=== PATIENT | male | born 1945 | race Caucasian/White ===

== ENCOUNTER → 2020-09-13 10:46 | Outpatient (BNVA) | payer MEDICARE, SELFPAY | PROVIDERS: PCP Family Medicine; Visit Provider Nurse Practitioner Family | DX: I10 Essential (primary) hypertension (principal); S60.511A Abrasion of right hand, initial encounter; S60.512A Abrasion of left hand, initial encounter; L25.5 Unspecified contact dermatitis due to plants, except food | CPT/HCPCS: 80053; 80061; 84443; 85025; 87070; 87075; 87205 ==

== ENCOUNTER → 2020-09-15 10:04 | Outpatient (BNVA) | payer MEDICARE, SELFPAY | PROVIDERS: PCP Family Medicine; Visit Provider Nurse Practitioner Family | DX: R73.01 Impaired fasting glucose (principal); R73.09 Other abnormal glucose | CPT/HCPCS: 83036 ==

== ENCOUNTER 2020-10-12 08:04 | Outpatient (CLI) | payer MEDICARE, MEDICAID, SELFPAY | END 2020-10-12 08:05 | disposition home or self-care (01) | PROVIDERS: PCP Family Medicine; Visit Provider Nurse Practitioner Family | DX: L98.491 Non-pressure chronic ulcer of skin of other sites limited to breakdown of skin (principal) | CPT/HCPCS: 11042; G0463 ==

== ENCOUNTER 2022-07-19 09:43 | Outpatient (CLI) | payer MEDICARE, SELFPAY ==
--- NOTE | 2022-07-19 10:15 | USCV_ITS ---
Evert Shau Age: 76 Gender: M : 1945 Exam Date: 07/19/2022 09:57 Ordering Phys: Maynor Christianson M.D ([email or web address]) Technologist: Shahana [place] [facility] [place]: Shortness of Breath BP: 120 / 70 HR: 51 Rhythm: Sinus Technical Quality: Adequate MEASUREMENTS (Male / Female) Normal Values 2D ECHO LV Diastolic Diameter PLAX 3.9 cm 4.2 - 5.9 / 3.9 - 5.3 cm LV Systolic Diameter PLAX 3.2 cm LV Chamber Size 3.9 cm IVS Diastolic Thickness 0.9 cm 0.6 - 1.0 / 0.6 - 0.9 cm IVS Systolic Thickness 1.3 cm LVPW Diastolic Thickness 1.2 cm 0.6 - 1.0 / 0.6 - 0.9 cm LVPW Systolic Thickness 1.4 cm RV Chamber Size 3.5 cm LVOT Diameter 2.1 cm LV Ejection Fraction 2D Teich 39.4 % LV Ejection Fraction MOD 2C 47.4 % LV Ejection Fraction 2C AL 46.7 % LA Diameter 2.6 cm LA Width 2.6 cm LA Height 3.7 cm RA Width 3.5 cm RA Height 4.4 cm Aorta at Sinotubular Diameter 2.5 cm IVC Diameter 1.5 cm M-MODE Aortic Annulus Diameter 2.8 cm LA Ao Ratio MM 1.1 MV E Point Septal Separation 0.5 cm DOPPLER AV Peak Velocity 130.0 cm/s LVOT Peak Velocity 124.0 cm/s AV Area Cont Eq vti 3.1 cm squared AV Area Cont Eq pk 3.3 cm squared MV Area PHT 3.0 cm squared Mitral E to A Ratio 1.3 MV E' Velocity 48.0 cm/s Mitral E to MV E' Ratio 9.8 Mitral E to LV E' Lateral Ratio 8.6 Mitral E to LV E' Septal Ratio 11.4 TR Peak Velocity 216.9 cm/s TR Peak Gradient 18.8 mmHg TR Mean Velocity 154.1 cm/s TR Mean Gradient 11.0 mmHg TR Velocity Time Integral 69.3 cm TV Peak E Velocity 31.0 cm/s Right Atrial Pressure 8.0 mmHg Pulmonary Artery Systolic Pressu 26.8 mmHg RV Acceleration Time 0.2 s RV Ejection Time 0.4 s RV AcT/ET 0.4 FINDINGS Left Ventricle Left ventricle is normal in size. LV systolic function is normal with EF of 55 to 60%. No regional wall motion abnormalities are seen. Diastolic function is normal. Right Ventricle Normal in size and function Right Atrium Normal in size Left Atrium Normal in size Mitral Valve Structurally normal mitral valve. No significant stenosis or regurgitation. Aortic Valve Grossly normal. No significant stenosis or regurgitation. Tricuspid Valve Mild tricuspid regurgitation. Insufficient TR jet to calculate RVSP Pulmonic Valve Not well visualized Pericardium Normal Aorta Normal in size IVC Appears to be normal CONCLUSIONS LV systolic function is normal with EF of 55 to 60%. Diastolic function is normal. Mild tricuspid regurgitation. No comparison studies are available Maynor Christianson MD (Electronically Signed) Final Date: 21 July 2022 13:35 S
== END 2022-07-19 09:44 | disposition home or self-care (01) ==
LOC: RAD 09:45
PROVIDERS: PCP Nurse Practitioner Family; Visit Provider Internal Medicine
DX: R06.02 Shortness of breath (principal); I07.1 Rheumatic tricuspid insufficiency
CPT/HCPCS: 93306

== ENCOUNTER → 2022-10-23 13:33 | Outpatient (BNVA) | payer MEDICARE, SELFPAY | PROVIDERS: PCP Nurse Practitioner Family; Visit Provider Internal Medicine | DX: I25.10 Atherosclerotic heart disease of native coronary artery without angina pectoris (principal); I73.9 Peripheral vascular disease, unspecified; J44.9 Chronic obstructive pulmonary disease, unspecified; Z98.61 Coronary angioplasty status; I10 Essential (primary) hypertension; I25.2 Old myocardial infarction; F17.210 Nicotine dependence, cigarettes, uncomplicated | CPT/HCPCS: 99214 ==

== ENCOUNTER → 2023-04-23 14:47 | Outpatient (BNVA) | payer MEDICARE, SELFPAY | PROVIDERS: PCP Nurse Practitioner Family; Visit Provider Nurse Practitioner Family | DX: I25.10 Atherosclerotic heart disease of native coronary artery without angina pectoris (principal); I73.9 Peripheral vascular disease, unspecified; I10 Essential (primary) hypertension; F17.210 Nicotine dependence, cigarettes, uncomplicated | CPT/HCPCS: 99214 ==

== ENCOUNTER → 2023-10-16 13:49 | Outpatient (BNVA) | payer MEDICARE, SELFPAY | PROVIDERS: PCP Nurse Practitioner Family; Visit Provider Internal Medicine | DX: I25.10 Atherosclerotic heart disease of native coronary artery without angina pectoris (principal); I73.9 Peripheral vascular disease, unspecified; J44.9 Chronic obstructive pulmonary disease, unspecified; Z98.61 Coronary angioplasty status; I10 Essential (primary) hypertension; Z72.0 Tobacco use; I25.2 Old myocardial infarction | CPT/HCPCS: 99214 ==

== ENCOUNTER 2024-01-15 16:03 | Emergency (ER) | payer MEDICARE, SELFPAY ==
[2024-01-15 16:11] VITALS: BP 173/70; PULSE 53; RESP 18; TEMP 36.8; O2SAT 99; BMI 25.8
--- NOTE | 2024-01-15 16:12 | XRR_ITS ---
PROCEDURE INFORMATION: Exam: XR Chest Exam date and time: 01/15/2024 5:04 PM Age: 78 years old Clinical indication: Chest wall pain; Additional info: Cp TECHNIQUE: Imaging protocol: Radiologic exam of the chest. Views: 1 view. COMPARISON: No relevant prior studies available. FINDINGS: Lungs: Unremarkable. No consolidation or mass. Pleural spaces: Unremarkable. No pleural effusion. No pneumothorax. Heart/Mediastinum: Unremarkable. No cardiomegaly. Bones/joints: Unremarkable. XR/XR chest 1V portable [id number] IMPRESSION: No acute findings.
--- NOTE | 2024-01-15 16:12 | ECG_ITS ---
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 Measurements Intervals [place] Rate: 54 P: 51 DE: 145 QRS: 71 QRSD: 89 T: 75 QT: 420 QTc: 399 Interpretive Statements SINUS BRADYCARDIA No previous ECG available for comparison Electronically Signed On 01-16-2024 17:04:22 CDT by Tamara Pacheco M.D. [email or web address] Exchangeselect medical [email or web address].MD.Voice/store/NU/[id number] f
--- NOTE | 2024-01-15 16:16 | ED_ITS ---
HPI - Chest Pain 2 General: Chief Complaint: Chest Pain Stated Complaint: dr jaimes, chest pain Time Seen by Provider: 01/15/24 16:11 Source: patient Mode of arrival: ambulatory Limitations: no limitations History of Present Illness: 78-year-old male has a history of dougherty ry disease he states that he has been having chest pain throughout the day. States been up dull ache in the center of his chest he states he is taken some nitro and the pain had resolved but with activity it is worsening. He states his pain is mild right now rates it a 1 out of 10 denies any nausea or diaphoresis. Associated symptoms: Deny abdominal pain, dyspnea, fever(s), nausea or vomiting Review of Systems 2 Const: Denies: fever(s), chills, body aches or change in appetite ENMT: Denies: throat pain or dental pain Card: Reports: chest pain Resp: Denies: dyspnea GI: Denies: abdominal pain, nausea, vomiting or diarrhea Musc: Denies: neck pain or back pain Skin/Breast: Denies: rash Neuro: Denies: headache(s) PFSH ED 2 PFSH: Medical History (Updated 01/15/24 @ 19:15 by Johnathan Gibson MD) History of cardiac arrest Tobacco abuse PAD (peripheral artery disease) COPD (chronic obstructive pulmonary disease) Myocardial infarction ASHD (arteriosclerotic heart disease) HTN (hypertension) Surgical History S/P PTCA (percutaneous transluminal coronary angioplasty) Family History Other CAD (coronary artery disease) Social History Smoking and tobacco/nicotine status: current every day tobacco/nicotine user cigarettes Packs smoked per day: 1 Second hand smoke exposure: No Alcohol intake: current Alcohol type: beer Substance/Drug Use: never Lives independently: Yes Marital status: service: No Current occupational status: retired and disabled Current gender identity: Male Physical Exam 2 Const: COMMON NORMALS: no acute distress, patient oriented x3 and healthy appearing HENMT: COMMON NORMALS: normocephalic and atraumatic HEAD & SCALP: n ormocephalic and atraumatic Neck/C-Spine: COMMON NORMALS: full ROM and supple Chest: COMMONS NORMALS: normal inspection of the chest Resp: COMMON NORMALS: normal respiratory effort, No retractions, No use of accessory muscles and clear to auscultation bilaterally AUSCULTATION: clear to auscultation bilaterally Cardio: COMMON NORMALS: regular rate, regular rhythm and No murmurs present (Cardio) RATE: regular rate RHYTHM: regular rhythm GI: COMMON NORMALS: Normal to inspection, nondistended, normoactive bowel sounds present, Soft to palpation, non-tender and no masses PALPATION: Yes Soft to palpation Extremity: COMMON NORMALS: normal to inspection and full ROM Neuro: COMMON NORMALS: patient oriented x3, moves all extremities and no focal motor deficits Psych: COMMON NORMALS: mental status grossly normal, Normal thought process present and cooperative THOUGHT PROCESS: Normal thought process present Skin: COMMON NORMALS: no rashes or lesions noted and no wounds GENERAL SKIN EXAM: no rashes or lesions noted Course 2 Vital Signs: Vital signs: Vital Signs Temperature 98.2 F 01/15/24 16:11 Pulse Rate 50 L 01/15/24 18:59 Respiratory Rate 17 01/15/24 18:59 Blood Pressure 159/63 01/15/24 18:59 Pulse Oximetry 99 01/15/24 18:59 Oxygen Delivery Me thod Room Air 01/15/24 16:25 MDM - Chest Pain Medical Decision Making Patient presents here with chest pain his pain has been resolved currently his EKGs and troponins here are negative I feel he is stable for discharge is no signs of acute ACS. 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 Lab Data I reviewed the patient's lab results. 01/15/24 16:32 01/15/24 16:32 Radiology Impressions Chest X-Ray 01/15/24 16:12 IMPRESSION: No acute findings. Laboratory Results WBC 5.21 10^3/uL (3.29-11.43) 01/15/24 16:32 RBC 3.99 10^6/uL (3.85-5.65) 01/15/24 16:32 Hgb 12.30 g/dL (11.27-16.99) 01/15/24 16:32 Hct 38.2 % (37-53) 01/15/24 16:32 MCV 95.7 fl (82-101) 01/15/24 16:32 MCH 30.8 pg (27-33) 01/15/24 16:32 MCHC 32.2 g/dL (30-55) 01/15/24 16:32 RDW 12.4 % (12.1-15.1) 01/15/24 16:32 Plt Count 175 10^3/cmm (157-399) 01/15/24 16:32 MPV 10.5 fL (7.4-10.4) H 01/15/24 16:32 Neut % (Auto) 59.1 % 01/15/24 16:32 Lymph % (Auto) 28.8 % 01/15/24 16:32 Randall % (Auto) 6.9 % 01/15/24 16:32 Eos % (Auto) 4.6 % 01/15/24 16:32 Baso % (Auto) 0.2 % 01/15/24 16:32 Neut # (Auto) 3.08 10^3/uL (1.8-7.7) 01/15/24 16:32 Lymph # (Auto) 1.5 10^3/uL (0.8-4.8) 01/15/24 16:32 Randall # (Auto) 0.4 10^3/uL (0.2-0.9) 01/15/24 16:32 Eos # (Auto) 0.2 10^3/uL (0.0-0.8) 01/15/24 16:32 Baso # (Auto) 0.0 10^3/uL (0.0-0.1) 01/15/24 16:32 Nucleated RBC % (auto) 0 % 01/15/24 16:32 Nucleated RBCs # 0.0 /100WBC 01/15/24 16:32 PT 13.80 SECONDS (12.1-14.9) 01/15/24 16:32 INR 1.03 (0.8-1.2) 01/15/24 16:32 Sodium 142 mmol/L (136-145) 01/15/24 16:32 Potassium 4.1 mmol/L (3.5-5.1) 01/15/24 16:32 Chloride 109 mmol/L (98-107) H 01/15/24 16:32 Carbon Dioxide 24 mmol/L (22-29) 01/15/24 16:32 Anion Gap 13.1 (5-19) 01/15/24 16:32 BUN 22 mg/dL (8-23) 01/15/24 16:32 Creatinine 1.2 mg/dL (0.7-1.2) 01/15/24 16:32 GFR Calculation Not Reportable 01/15/24 16:32 Glucose 98 mg/dL (65-115) 01/15/24 16:32 Calculated Osmolality 297 mOsm/kg (285-295) H 01/15/24 16:32 Calcium 9.3 mg/dL (8.5-10.5) 01/15/24 16:32 Total Bilirubin 0.3 mg/dL (0.15-1.2) 01/15/24 16:32 AST 11 U/L (0-40) 01/15/24 16:32 ALT 9 U/L (0-41) 01/15/24 16:32 Alkaline Phosphatase 106 U/L (40-130) 01/15/24 16:32 Troponin T Baseline 9 ng/L (0-15) 01/15/24 16:32 Troponin T 120 Minute 6.76 ng/L (0-15) 01/15/24 18:30 Delta Troponin T -2.24 ABS# (0-10) L 01/15/24 18:30 Total Protein 6.3 g/dL (6.6-8.7) L 01/15/24 16:32 Albumin 4.1 g/dL (3.5-5.2) 01/15/24 16:32 Globulin 2.2 g/dL (1.3-4.6) 01/15/24 16:32 Lipase 40 U/L (13-60) 01/15/24 16:32 All radiology interpretation(s) finalized by discharge EKG Data EKG 1: I personally reviewed and interpreted this EKG as follows: EKG interpretation date: 01/15/24 EKG interpretation time: 16:09 Interpretation: sinus fouzia [address] or t wave abnormalities qrs 89 qtc 405 Discharge Plan Discharge Patient Disposition: Home Clinical Impression: Chest pain Condition: Stable Prescriptions: No Action budesonide-formoterol [Symbicort] 80-4.5 mcg/actuation HFA aerosol inhaler 1 inh inhalation BID PRN (Reason: Shortness Of Breath) triamterene-hydrochlorothiazid 37.5-25 mg tablet 1 tab PO DAILY Qty: 90 3RF clopidogrel 75 mg tablet 75 mg PO DAILY Qty: 90 3RF atorvastatin 20 mg tablet 20 mg PO DAILY Qty: 90 3RF potassium chloride 20 mEq tablet,ER particles/crystals 20 meq PO DAILY Qty: 90 3RF metoprolol tartrate 25 mg tablet 25 mg PO BID Qty: 180 3RF nitroglycerin [Nitrostat] 0.4 mg tablet, sublingual 0.4 mg SUBLINGUAL Q5M PRN (Reason: chest pain) Qty: 25 3RF Rx Instructions: until response; do not exceed 3 doses per episode Aspir-81 81 mg Tablet,Delayed Release (Dr/Ec) 81 mg PO DAILY ketoconazole 2 % cream 1 applic TOPICAL BID PRN (Reason: SCALP ) Discharge Orders: Discharge ED (Routine); Ordered 01/15/24 Ordered By: Johnathan Gibson Referrals: Maynor Christianson M.D [Physician] - 1-3 days Glavin,LEXI Boyer [Primary Care Provider] - Discharge Diet: Advance as tolerated Discharge Activity: Resume usual activity Patient Instructions: Chest Pain (ED) Coding Level of Care Code ED Bail Bondsman for Francheska Montejo
[2024-01-15] MEDS: aspirin 81 mg Chew Tablet 324 MG PO (16:19)
[2024-01-15 16:25] VITALS: BP 173/70; PULSE 53; O2SAT 99
--- NOTE | 2024-01-15 16:42 | PC.PHAR ---
PT PRESENTED MEDICATION LIST-WENT OVER VERBALLY WITH PT WHILE IN THE ROOM. PT IS NOT TAKING BUPROPION XL 150MG FROM 11/11/23.
[2024-01-15 16:56] LABS: Basophils % 0.2 %; Eosinophils # 0.2 10^3/uL (0.0-0.8); Eosinophils % 4.6 %; Hematocrit 38.2 % (37-53); Lymphocytes # 1.5 10^3/uL (0.8-4.8); Lymphocytes % 28.8 %; Mean Corpuscular HGB Conc 32.2 g/dL (30-55); Mean Corpuscular Hemoglobin 30.8 pg (27-33); Mean Corpuscular Volume 95.7 fl (82-101); Mean Platelet Volume 10.5 fL (7.4-10.4); Monocytes # 0.4 10^3/uL (0.2-0.9); Monocytes % 6.9 %; Neutrophils # 3.08 10^3/uL (1.8-7.7); Neutrophils % 59.1 %; Nucleated Red Blood Cells % 0 %; Platelet Count 175 10^3/cmm (157-399); Red Blood Count 3.99 10^6/uL (3.85-5.65); Red Cell Distribution Width 12.4 % (12.1-15.1); White Blood Count 5.21 10^3/uL (3.29-11.43)
[2024-01-15 17:10] LABS: INR 1.03 (0.8-1.2)
[2024-01-15 17:13] LABS: Troponin(5th) Baseline 9 ng/L (0-15)
[2024-01-15 17:16] LABS: Alanine Aminotransferase 9 U/L (0-41); Albumin Level 4.1 g/dL (3.5-5.2); Alkaline Phosphatase 106 U/L (40-130); Anion Gap 13.1 (5-19); Aspartate Amino Transferase 11 U/L (0-40); Blood Urea Nitrogen 22 mg/dL (8-23); Calcium 9.3 mg/dL (8.5-10.5); Carbon Dioxide 24 mmol/L (22-29); Chloride 109 mmol/L (98-107); Creatinine Clr Calc Pharmacy 49.1369; Globulin 2.2 g/dL (1.3-4.6); Glucose 98 mg/dL (65-115); Lipase 40 U/L (13-60); Osmolality Calculated 297 mOsm/kg (285-295); Potassium 4.1 mmol/L (3.5-5.1); Sodium 142 mmol/L (136-145); Total Bilirubin 0.3 mg/dL (0.15-1.2); Total Protein 6.3 g/dL (6.6-8.7)
[2024-01-15 18:06] VITALS: BP 159/62; PULSE 49; O2SAT 98
[2024-01-15 18:58] LABS: Troponin 5 2HR 6.76 ng/L (0-15)
[2024-01-15 18:59] VITALS: BP 159/63; PULSE 50; RESP 17; O2SAT 99
[2024-01-15 18:59] LABS: Troponin 5 2HR Delta -2.24 ABS# (0-10)
[2024-01-15 19:45] VITALS: BP 167/69; PULSE 50; RESP 17; O2SAT 99
--- NOTE | 2024-01-15 20:17 | DCPLANNER ---
Message sent to Cardiology for a follow up - Chest pain
== END 2024-01-15 19:26 | disposition home or self-care (01) ==
PROVIDERS: Emergency Provider Emergency Medicine; PCP Nurse Practitioner Family
DX: R07.9 Chest pain, unspecified (principal); Z79.02 Long term (current) use of antithrombotics/antiplatelets; Z79.82 Long term (current) use of aspirin; J44.9 Chronic obstructive pulmonary disease, unspecified; I25.2 Old myocardial infarction; I10 Essential (primary) hypertension; F17.210 Nicotine dependence, cigarettes, uncomplicated
CPT/HCPCS: 36415; 71045; 80053; 83690; 84484; 85025; 85610; 93005; 99285

== ENCOUNTER → 2024-02-02 13:53 | Outpatient (BNVA) | payer MEDICARE, SELFPAY | PROVIDERS: PCP Nurse Practitioner Family; Visit Provider Nurse Practitioner Family | DX: I10 Essential (primary) hypertension (principal); I25.10 Atherosclerotic heart disease of native coronary artery without angina pectoris; F17.210 Nicotine dependence, cigarettes, uncomplicated | CPT/HCPCS: 99214 ==

== ENCOUNTER → 2024-07-15 15:38 | Outpatient (BNVA) | payer MEDICARE, SELFPAY | PROVIDERS: PCP Nurse Practitioner Family; Visit Provider Internal Medicine | DX: I25.10 Atherosclerotic heart disease of native coronary artery without angina pectoris (principal); I73.9 Peripheral vascular disease, unspecified; J44.9 Chronic obstructive pulmonary disease, unspecified; Z98.61 Coronary angioplasty status; I10 Essential (primary) hypertension; Z72.0 Tobacco use; I25.2 Old myocardial infarction | CPT/HCPCS: 99214 ==

== ENCOUNTER → 2025-04-14 14:55 | Outpatient (BNVA) | payer MEDICARE, SELFPAY | PROVIDERS: PCP Nurse Practitioner Family; Visit Provider Internal Medicine | DX: I25.10 Atherosclerotic heart disease of native coronary artery without angina pectoris (principal); I10 Essential (primary) hypertension; I73.9 Peripheral vascular disease, unspecified; J44.9 Chronic obstructive pulmonary disease, unspecified; Z72.0 Tobacco use; Z79.02 Long term (current) use of antithrombotics/antiplatelets; Z79.82 Long term (current) use of aspirin; Z98.61 Coronary angioplasty status; I25.2 Old myocardial infarction | CPT/HCPCS: 99214 ==